=== PATIENT | male | born 1945 | race Caucasian/White ===

== ENCOUNTER 2021-02-05 09:57 | Outpatient (REF) | payer MEDICARE, SELFPAY | END 2021-02-05 09:58 | disposition home or self-care (01) | LOC: HO.BBR 09:57 | PROVIDERS: Visit Provider Internal Medicine | DX: Z13.89 Encounter for screening for other disorder (principal) ==

== ENCOUNTER 2021-03-03 09:11 | Outpatient (REF) | payer MEDICARE, SELFPAY | END 2021-03-03 09:12 | disposition home or self-care (01) | LOC: HO.BBR 09:11 | PROVIDERS: Visit Provider Internal Medicine | DX: Z13.89 Encounter for screening for other disorder (principal) ==

== ENCOUNTER 2021-07-03 10:08 | Outpatient (REF) | payer MEDICARE, SELFPAY | END 2021-07-03 10:09 | disposition home or self-care (01) | LOC: HO.BBR 10:08 | PROVIDERS: Visit Provider Internal Medicine | DX: Z13.89 Encounter for screening for other disorder (principal) ==

== ENCOUNTER 2021-11-03 11:06 | Outpatient (REF) | payer MEDICARE, SELFPAY | END 2021-11-03 11:07 | disposition home or self-care (01) | LOC: HO.BBR 11:06 | PROVIDERS: Visit Provider Internal Medicine | DX: Z13.89 Encounter for screening for other disorder (principal) ==

== ENCOUNTER 2022-03-10 10:02 | Outpatient (REF) | payer MEDICARE, SELFPAY | END 2022-03-10 10:03 | disposition home or self-care (01) | LOC: HO.BBR 10:02 | PROVIDERS: Visit Provider Internal Medicine | DX: Z13.89 Encounter for screening for other disorder (principal) ==

== ENCOUNTER 2023-05-03 07:51 | Outpatient (REF) | payer MEDICARE, SELFPAY | END 2023-05-03 07:52 | disposition home or self-care (01) | LOC: HO.HOSX 07:51 | PROVIDERS: Visit Provider Orthopaedic Surgery | DX: M25.511 Pain in right shoulder (principal) | CPT/HCPCS: 99202 ==

== ENCOUNTER 2023-05-03 12:28 | Outpatient (AMB) | payer MEDICARE, SELFPAY ==
--- NOTE | 2023-05-03 12:45 | A.OFFVIS_ITS ---
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 He states that he injured his shoulder while working out approximately 1 year ago. Since that time he has had difficulty lifting his right hand above shoulder height. He has had injections in the past which gave him minimal relief. He has also done physical therapy for 12 weeks over the last 6 months which aggravated his pain. He has tried Tylenol and anti-inflammatory medicines which gave him minimal relief. Allergies No Known Allergies Allergy (Verified 05/03/23 12:47) Medication List - Last Reconciled 05/03/23 by Anthony Mcallister MD aspirin (Adult Aspirin Regimen) 81 mg PO DAILY atorvastatin 80 mg PO DAILY metoprolol succinate ER 25 mg PO DAILY tamsulosin 0.4 mg PO DAILY PFSH Surgical History (Updated 05/03/23 @ 12:49 by Scarlett Fuentes CMA) Hx of hernia repair Hx of appendectomy H/O heart surgery Social History (Updated 05/03/23 @ 12:49 by Scarlett Fuentes CMA) Patient Tobacco Use Status: Never used Tobacco Current occupational status: retired Physical Exam Vital Signs: BMI result Body Mass Index 24.5 Const Other: Well-nourished well-developed very friendly male awake alert and oriented x3 in no acute distress Extrem Other: Bilateral upper extremity examination shows good capillary refill, no skin lesions noted, normal sensation light touch Right shoulder examination shows decreased range of motion when compared to his left shoulder, 4/5 strength with supraspinatus testing, positive impingement signs, tenderness over his acromioclavicular joint, no instability Results Reviewed Results Reviewed: X-rays of the patient's right shoulder show severe acromioclavicular joint narrowing, a type 2 acromion, no acute bony abnormalities Assessment & Plan Assessment & Plan (1) Right shoulder pain: Code(s): M25.511 - Pain in right shoulder Plan Mr. Reyes presents with progressively worsening right shoulder pain and weakness most likely due to a full-thickness rotator cuff tear. Thus, I will send the patient for an MRI of his right shoulder for further evaluation of his rotator cuff tendons. If he does have a full-thickness tear I will recommend surgical repair to optimize his future functional level. He will continue with his range of motion exercises in the meantime to prevent stiffness. Feel free to call me at any time should questions regarding his orthopedic management arise. Thank you very much for asking me to see this very friendly gentleman. I spent 22 minutes in reviewing the patient's records and imaging studies, seeing the patient and documenting in the medical record. Orders: Orders MR shoulder RT wo con Today M25.511 - Pain in right shoulder XR shoulder RT min 2V Today M25.511 - Pain in right shoulder Coding Level of Care Code New Pt Level 2 (47772) Diagnoses Right shoulder pain M25.511
[2023-05-03 12:46] VITALS: BMI 24.5
== END 2023-05-03 13:05 | disposition home or self-care (01) ==
PROVIDERS: Visit Provider Orthopaedic Surgery
DX: M25.511 Pain in right shoulder (principal)
CPT/HCPCS: 99202

== ENCOUNTER 2023-05-17 10:53 | Outpatient (AMB) | payer MEDICARE, SELFPAY ==
--- NOTE | 2023-05-17 10:59 | MHC.OFFVIS ---
Intake Vital Signs 05/17/23 11:02 Height 5 ft 8 in Weight 161 lb BMI 24.5 Intake Visit Reasons: OV- MRI review Rt shoulder Intake Note: Royal is a 77 year old right hand dominant male who presents today with complaints of right shoulder pain and weakness. He states that he injured his shoulder while working out approximately 1 year ago. Since that time he has had difficulty lifting his right hand above shoulder height. He has had injections in the past which gave him minimal relief. He has also done physical therapy for 12 weeks over the last 6 months which aggravated his pain. He has tried Tylenol and anti-inflammatory medicines which gave him minimal relief. Allergies No Known Allergies Allergy (Verified 05/17/23 11:02) Medication List - Last Reconciled 05/17/23 by Anthony Mcallister MD aspirin (Adult Aspirin Regimen) 81 mg PO DAILY atorvastatin 80 mg PO DAILY metoprolol succinate ER 25 mg PO DAILY tamsulosin 0.4 mg PO DAILY PFSH Surgical History Hx of hernia repair Hx of appendectomy H/O heart surgery Patient Tobacco Use Status: Never used Tobacco Current occupational status: retired Physical Exam Vital Signs: BMI result Body Mass Index 24.5 Const Other: Well-nourished well-developed very friendly male awake alert and oriented x3 in no acute distress Lungs - clear to auscultation bilaterally with symmetric expansion Cardiovascular exam - regular rate and rhythm Abdominal exam - soft nontender nondistended Extrem Other: Bilateral upper extremity examination shows good capillary refill, no skin lesions noted, normal sensation light touch Right shoulder examination shows decreased range of motion when compared to his left shoulder, 4/5 strength with supraspinatus testing, positive impingement signs, tenderness over his acromioclavicular joint, no instability Results Reviewed Results Reviewed: MRI of the patient's right shoulder show severe acromioclavicular joint narrowing, a type 2 acromion, a full-thickness supraspinatus tendon tear Assessment & Plan Assessment & Plan (1) Right shoulder pain: Code(s): M25.511 - Pain in right shoulder Plan Mr. Reyes presents with progressively worsening right shoulder pain and weakness due to impingement syndrome, acromioclavicular joint arthritis and a full-thickness rotator cuff tear. I had a lengthy discussion with the patient regarding the treatment options. At this point he has failed continued non operative treatments. The risks and benefits of right shoulder surgery were discussed at length with the patient. The patient wishes to proceed with surgery. Surgery will most likely involve right shoulder diagnostic arthroscopy with distal clavicle excision, acromioplasty and rotator cuff repair. The patient will contact my office to pick a surgery date. He will follow-up as instructed. Feel free to call me at any time should questions regarding his orthopedic management arise. I spent 22 minutes in reviewing the patient's records and imaging studies, seeing the patient and documenting in the medical record. Coding Level of Care Code Est Pt Level 2 (67832) Diagnoses Right shoulder pain M25.511
[2023-05-17 11:02] VITALS: BMI 24.5
== END 2023-05-17 11:24 | disposition home or self-care (01) ==
PROVIDERS: PCP Internal Medicine; Visit Provider Orthopaedic Surgery
DX: M25.511 Pain in right shoulder (principal)
CPT/HCPCS: 99212

== ENCOUNTER → 2023-05-17 10:53 | Outpatient (BNVA) | payer MEDICARE, SELFPAY | PROVIDERS: PCP Internal Medicine; Visit Provider Orthopaedic Surgery | DX: M25.511 Pain in right shoulder (principal) | CPT/HCPCS: 99212 ==

== ENCOUNTER → 2023-05-30 | Outpatient (BNV) | payer MEDICARE, SELFPAY | PROVIDERS: PCP Internal Medicine; Visit Provider Internal Medicine Cardiovascular Disease | DX: R00.1 Bradycardia, unspecified (principal); R94.31 Abnormal electrocardiogram [ECG] [EKG] | CPT/HCPCS: 93010 ==

== ENCOUNTER 2023-06-17 05:53 | Day surgery (SDC) | payer MEDICARE, SELFPAY ==
--- NOTE | 2023-05-30 | ECG_ITS ---
Test Reason : PREOP Blood Pressure : / mmHG Vent. Rate : 052 BPM Atrial Rate : 052 BPM P-R Int : 156 ms QRS Dur : 122 ms QT Int : 468 ms P-R-T Axes : 071 024 095 degrees QTc Int : 435 ms Sinus bradycardia Right bundle branch block Inferior infarct , age undetermined Abnormal ECG No previous ECGs available Referred By: Matilda Howell Electronically Signed By:Larry Cohn
[2023-05-30 11:53] VITALS: BP 125/62; PULSE 60; RESP 16; O2SAT 99; BMI 24.6
--- NOTE | 2023-05-30 12:10 | P.CONAN_ITS ---
Documented by User: Matilda Howell NP 06/16/23 09:45 HPI - Anesthesia Eval Consult details Narrative: 77yo M for Right shoulder arthoroscopy, distal clavicle excision, rotator cuff repair, 06/17/23 No IV/BP on Left ARM (Vein harvesting for CABG) Follows [facility]. s/p CABG x 5 2020 Hx afib s/p maze, No OAC. Hx CVA 04/2020 No CP/SOB with 45 min cardio and strength training 3 x weekly Hernia surgery repair and elvie with GA 2022 without issue Hemochromatosis - no therapeutic phlebs for ~ 1 year. Last H&H mild low 02/2023 CVA 2019 - No residual PMFSH Active Problems Active Problems: All Active Problems (Updated 05/27/23 @ 12:01 by Pratima Munguia RN) Right shoulder pain (Acute) Past Medical History Medical History History of hemochromatosis Hx TIA/stroke w/o resid RBBB (right bundle branch block) History of transesophageal echocardiography (ASIYA) Exercises three times per week History of atrial fibrillation BPH (benign prostatic hyperplasia) Elevated cholesterol HTN (hypertension) Surgical History Surgical History Hx of maze procedure Hx of colonoscopy Hx laparoscopic cholecystectomy History of bilateral inguinal hernia repair Hx of appendectomy H/O heart surgery Social History Social History (Updated 05/27/23 @ 09:55 by Pratima Munguia RN) Are you a primary disabilities caregiver to a significant other at home: No Do you presently have visiting nurse or other home services: No Patient Tobacco Use Status: Former Tobacco user Quit Date: Tobacco use type: Cigarette Use of substances other than those prescribed or required for medical reasons: No Have you been hit, kicked, punched, or otherwise hurt by someone within the past year? If so, by whom?: No Are you DNR?: No Advance Directives: No Advance Directives Information Provided: Yes Advance Directives on File: No Recently lost weight without trying: No Nutrition Risks: No Nutritional Risk Current occupational status: retired Meds Allergies Allergy/AdvReac Type Severity Reaction Status Date / Time No Known Allergies Allergy Verified 06/17/23 06:32 Home Medications Medication Instructions Recorded Confirmed Last Taken Type aspirin 81 mg tablet,delayed 81 mg PO DAILY 05/03/23 06/17/23 06/16/23 History release (Adult Aspirin Regimen) atorvastatin 80 mg tablet 80 mg PO DAILY 05/03/23 06/17/23 06/16/23 History metoprolol succinate 25 mg 25 mg PO DAILY 05/03/23 06/17/23 06/17/23 05:00 History tablet,extended release 24 hr tamsulosin 0.4 mg capsule 0.8 mg PO DAILY 05/03/23 06/17/23 06/16/23 History acetaminophen 500 mg tablet 1,000 mg PO Q6H PRN Pain 05/30/23 06/17/23 06/17/23 05:00 History Exam Height,Weight and Vital Signs: Height 5 ft 8 in Weight 73.482 kg Last Vital Signs Pulse 60 05/30/23 11:53 Resp 16 05/30/23 11:53 BP 125/62 05/30/23 11:53 Pulse Ox 99 05/30/23 11:53 O2 Del Method Room Air 05/30/23 11:53 Pertinent Lab Results Pertinent Lab Results: CBC and BMP 02/2023 from outside facility WNL except mild low H&H Narrative Narrative: EKG 05/2023 Vent. Rate : 052 BPM Atrial Rate : 052 BPM P-R Int : 156 ms QRS Dur : 122 ms QT Int : 468 ms P-R-T Axes : 071 024 095 degrees QTc Int : 435 ms Sinus bradycardia Right bundle branch block Inferior infarct , age undetermined Abnormal ECG No previous ECGs available (No change from EKG from outside facility 08/2022) Airway Mallampati Class: I TM Dist: >3cm Neck ROM: Limited (d/t shoulder pain) Partial: Lower Loose/Missing/Broken Teeth: Yes (Crowned front upper) Heart: RRR Lungs: CTAB Assessment and Plan Assessment Anesthesia Assessment: Anesthesia Plan Discussed and PAT Visit Documented by User: Willis Kuo MD 06/17/23 07:38 [facility] Past Medical History Medical History History of hemochromatosis Hx TIA/stroke w/o resid RBBB (right bundle branch block) History of transesophageal echocardiography (ASIYA) Exercises three times per week History of atrial fibrillation BPH (benign prostatic hyperplasia) Elevated cholesterol HTN (hypertension) Family History Family history of problems with anesthesia: No Surgical History Surgical History Hx of maze procedure Hx of colonoscopy Hx laparoscopic cholecystectomy History of bilateral inguinal hernia repair Hx of appendectomy H/O heart surgery History of Problems with Anesthesia: No Social History Social History (Updated 05/27/23 @ 09:55 by Pratima Munguia RN) Are you a primary disabilities caregiver to a significant other at home: No Do you presently have visiting nurse or other home services: No Patient Tobacco Use Status: Former Tobacco user Quit Date: Tobacco use type: Cigarette Use of substances other than those prescribed or required for medical reasons: No Have you been hit, kicked, punched, or otherwise hurt by someone within the past year? If so, by whom?: No Are you DNR?: No Advance Directives: No Advance Directives Information Provided: Yes Advance Directives on File: No Recently lost weight without trying: No Nutrition Risks: No Nutritional Risk Current occupational status: retired Meds Allergies Allergy/AdvReac Type Severity Reaction Status Date / Time No Known Allergies Allergy Verified 06/17/23 06:32 Home Medications Medication Instructions Recorded Confirmed Last Taken Type aspirin 81 mg tablet,delayed 81 mg PO DAILY 05/03/23 06/17/23 06/16/23 History release (Adult Aspirin Regimen) atorvastatin 80 mg tablet 80 mg PO DAILY 05/03/23 06/17/23 06/16/23 History metoprolol succinate 25 mg 25 mg PO DAILY 05/03/23 06/17/23 06/17/23 05:00 History tablet,extended release 24 hr tamsulosin 0.4 mg capsule 0.8 mg PO DAILY 05/03/23 06/17/23 06/16/23 History acetaminophen 500 mg tablet 1,000 mg PO Q6H PRN Pain 05/30/23 06/17/23 06/17/23 05:00 History Assessment and Plan Final Anesthetic Review Family History of Problems with Anesthesia: No History of Problems with Anesthesia: No NPO: Yes ASA Class: III Final Preanesthetic Review: No Changes in Pt Med Stat, Meds/Allgs Chart Reviewed, Consent Obtained/Reviewed and Anes Risks/Benef Reviewed Patient Risk: Intermediate Procedure Risk: Intermediate Anesthetic Plan Anesthetic Plan: GA and Regional Block Disposition: Standard PACU
[2023-06-17] VITALS (8 sets, daily range): BP systolic 131–157; BP diastolic 44–61; PULSE 54–64; RESP 14–16; TEMP 36.1–36.2; O2SAT 94–99; BMI 25.3
[2023-06-17] MEDS: Lactated Ringers 1,000 ML 100 ML IVCONT (06:40)
--- NOTE | 2023-06-17 09:52 | PM.OP ---
Brief Operative Note Date of Service: 06/17/23 Pre-op diagnosis: Right shoulder impingement syndrome, right shoulder acromioclavicular joint arthritis, right shoulder rotator cuff tear Post-op diagnosis: other (Same as preoperative diagnoses as well as right shoulder adhesive capsulitis and right shoulder glenohumeral joint arthritis) Procedure: Right shoulder diagnostic arthroscopy with right shoulder arthroscopic distal clavicle excision, right shoulder arthroscopic acromioplasty, right shoulder arthroscopic anterior capsular release, right shoulder manipulation under anesthesia, right shoulder mini-open rotator cuff repair Implants: 1 suture anchor (Alba [employer] Nephew Twinfix anchor the #2 Ultrabraid suture) Surgeon: Anthony Mcallister MD Anesthesia: GETA and regional Was an Kieselguhr Regenerator Operator used for this Procedure?: No Estimated blood loss (mL): 15 Pathology: none sent Condition: stable Disposition: PACU
--- NOTE | 2023-06-17 09:54 | P.OP_ITS ---
Operative Note Operative Note Date of Service: 06/17/23 Narrative: After the patient was identified as Royal Reyes and his right shoulder was initialed by myself the patient was brought to the holding area where a right shoulder interscalene regional block was performed by the anesthesiologist in routine fashion. The patient was then brought to the operating room where general anesthesia was induced by the anesthesiologist in routine fashion. The patient was given 2 g of IV Ancef preoperatively for infection prophylaxis. Examination under anesthesia of the patient's right shoulder show decreased passive range of motion when compared to the left. The patient's right shoulder had forward flexion to 120 degrees compared to 170 degrees, external rotation at 30 degrees compared to 60 degrees, internal rotation to 40 degrees compared to 50 degrees. The patient was gently positioned in the beach chair position with all bony prominences well padded. The patient's right shoulder region and upper extremity were prepped and draped in sterile fashion. A formal time-out was completed. A #11 scalpel blade was used to make a posterior portal 2 cm inferior and 1 cm medial to the posterolateral corner of the acromion. Blunt trocar technique was used to enter the glenohumeral joint in routine fashion. An anterior portal was made just lateral to the coracoid process after proper positioning was confirmed using a spinal needle. Diagnostic arthroscopy showed diffuse grade 1 and 2 degenerative changes of the glenoid articular surface as well as grade 2 and 3 degenerative changes of the humeral head. The articular surfaces of both were already smooth so no chondroplasty was indicated. There was a full-thickness tear of the supraspinatus tendon. There was no evidence of injury to the biceps tendon or its insertion onto the glenoid. There was inflammation of the anterior joint capsule consistent with adhesive capsulitis. Thus, the ArthroCare Wand was used to perform an anterior capsular release between the superior border of the subscapularis tendon and the inferior border of the biceps tendon. All arthroscopic instruments were removed. A gentle manipulation under anesthesia was then performed. Full passive range of motion was easily obtained. The arthroscope was then placed from the posterior portal into the subacromial space. A lateral portal was made 2 fingerbreadths lateral to the anterior lateral corner of the acromion. The ArthroCare Wand was used to ablate soft tissues along the undersurface of the acromion as well as to excise the coracoacromial ligament. There was a sharp spur along the undersurface of the acromion which was removed using the hooded bur. The arthroscope was then placed into the lateral portal and the acromioplasty was completed with the bur in the posterior portal using the posterior aspect of the acromion as a cutting block. The ArthroCare Wand was then brought in through the anterior portal and was used to ablate soft tissues along the acromioclavicular joint and distal clavicle. The posterior and superior ligamentous structures were left intact. A distal clavicle excision of 8 mm was performed using the hooded bur. Any remaining bursal tissue was removed using the arthroscopic shaver. The suba cromial space was irrigated and then drained. All arthroscopic instruments were removed. Sterile gloves were changed and the shoulder was once again prepped with Betadine. A #15 scalpel blade was used to extend the lateral portal to the lateral edge of the acromion. The subacromial tissues were dissected using electrocautery down to the superficial deltoid fascia. The trocar split in the anterior raphe of the deltoid was then extended to the lateral edge of the acromion using electrocautery and curved Bazan scissors. Any remaining bursal tissue was removed using curved Bazan scissors. Subacromial and subdeltoid adhesions were bluntly dissected. The undersurface of the acromion was palpated and it was smooth. A #2 Ethibond tag suture was placed into the supraspinatus tendon. The tendon was easily mobilized to its insertion point on the glenoid. The wound was irrigated with copious amounts of normal saline solution. One suture anchor was placed into the greater tuberosity in routine fashion. The rotator cuff repair was then performed using horizontal mattress sutures under minimal tension with the patient's elbow at their side. Following the repair the shoulder was taken through a full range of motion. The repair was stable. The wound was irrigated with copious amounts of normal saline solution. The superficial and deep deltoid fascia were closed with #1 Vicryl [id number]-[id number] interrupted suture. The wound was once again irrigated. The subcutaneous tissues were closed with 2-0 Vicryl interrupted suture. The skin was closed with 3-0 Prolene subcuticular suture and Steri-Strips. The anterior and posterior portals were closed with 3-0 nylon interrupted suture. Dry sterile dressing was placed over all incisions. The patient's right upper extremity was placed into a sling. The patient was awoken and extubated in the operating room. The patient was transferred to the recovery room in stable condition.
[2023-06-17] MEDS: cefTRIAXone sodium 1 GM in 0.9 % Sodium Chloride 50 ML IV (10:25)
== END 2023-06-17 11:43 | disposition home or self-care (01) ==
PROVIDERS: PCP Internal Medicine; Visit Provider Orthopaedic Surgery
PROC: (CPT 29805; principal; 2023-06-17 07:30)
DX: M75.101 Unspecified rotator cuff tear or rupture of right shoulder, not specified as traumatic (principal); M75.41 Impingement syndrome of right shoulder; M19.011 Primary osteoarthritis, right shoulder; M75.01 Adhesive capsulitis of right shoulder; I45.10 Unspecified right bundle-branch block; I10 Essential (primary) hypertension; E78.00 Pure hypercholesterolemia, unspecified; Z79.82 Long term (current) use of aspirin; Z79.899 Other long term (current) drug therapy; Z86.73 Personal history of transient ischemic attack (TIA), and cerebral infarction without residual deficits; Z98.890 Other specified postprocedural states; Z87.891 Personal history of nicotine dependence
CPT/HCPCS: 29824; 29825; 23412; 29826; 93005; C1713; J0171; J0690; J0696; J1100; J2405; J2704; J2795

== ENCOUNTER → 2023-06-17 05:53 | Outpatient (BNV) | payer MEDICARE, SELFPAY | PROVIDERS: PCP Internal Medicine; Visit Provider Orthopaedic Surgery | DX: S46.011A Strain of muscle(s) and tendon(s) of the rotator cuff of right shoulder, initial encounter (principal); M75.41 Impingement syndrome of right shoulder; M19.011 Primary osteoarthritis, right shoulder | CPT/HCPCS: 23410; 29824; 29826 ==

== ENCOUNTER 2023-06-30 11:29 | Outpatient (AMB) | payer MEDICARE, SELFPAY ==
--- NOTE | 2023-06-30 11:37 | A.OFFVIS_ITS ---
Intake Intake Visit Reasons: Rt Shld RTC Repair 06/17/23 Intake Note: Royal a 77 year old male presents today for a post operative right shoulder RTC repair, DOS 06/17/23 Patient reports he is doing well, states his pain has been tolerable. Allergies No Known Allergies Allergy (Verified 06/30/23 11:37) HPI Rt Shld RTC Repair 06/17/23 HPI Details 77-year-old male who returns to the [facility] today for post-op right shoulder RTC repair, 06/17/[address] Mcallister. He continues to have pain in his right shoulder which has been tolerable. He is doing well overall and has no other concerns today. [facility] Medical History History of hemochromatosis Hx TIA/stroke w/o resid RBBB (right bundle branch block) History of transesophageal echocardiography (ASIYA) Exercises three times per week History of atrial fibrillation BPH (benign prostatic hyperplasia) Elevated cholesterol HTN (hypertension) Surgical History Hx of maze procedure Hx of colonoscopy Hx laparoscopic cholecystectomy History of bilateral inguinal hernia repair Hx of appendectomy H/O heart surgery Social History Are you a primary health care marketing manager to a significant other at home: No Do you presently have visiting nurse or other home services: No Patient Tobacco Use Status: Former Tobacco user Quit Date: Tobacco use type: Cigarette Current occupational status: retired Review of Systems Const All systems reviewed & are unremarkable except as noted in HPI and below Physical Exam Extrem Other: Right shoulder: Normal to inspection. Incision clean, dry and intact. No erythema or drainage. NVI. Results Reviewed Results Reviewed: Date of Service: 06/17/23 Pre-op diagnosis: Right shoulder impingement syndrome, right shoulder acromioclavicular joint arthritis, right shoulder rotator cuff tear Post-op diagnosis: other (Same as preoperative diagnoses as well as right shoulder adhesive capsulitis and right shoulder glenohumeral joint arthritis) Procedure: Right shoulder diagnostic arthroscopy with right shoulder arthroscopic distal clavicle excision, right shoulder arthroscopic acromioplasty, right shoulder arthroscopic anterior capsular release, right shoulder manipulation under anesthesia, right shoulder mini-open rotator cuff repair Implants: 1 suture anchor (Alba [employer] Nephew Twinfix anchor the #2 Ultrabraid suture) Surgeon: Anthony Mcallister MD Assessment & Plan Assessment & Plan (1) S/P right rotator cuff repair: Code(s): Z98.890 - Other specified postprocedural states Plan Sutures removed today, steri strips applied. I did give him a handout of home exercises program and discussed this with them. I stressed the importance of wearing the sling and avoid any type of lifting or driving. I also placed an order for formal physical therapy in the office today. I would like to see him back in [address] Mcallister, sooner if needed. Orders: Orders PT Evaluation and Treatment Today Z98.890 - Other specified postprocedural states Patient Instructions: Scribed for Eric Perez PA-C, by Dakota Bertrand medical malpractice paralegal, on 06/30/2023 at 11:30 AM EST. I, Eric Perez PA-C, have personally reviewed and agree with the information entered by the scribe. Coding Level of Care Code Global (97805) Diagnoses S/P right rotator cuff repair Z98.890
== END 2023-06-30 12:15 | disposition home or self-care (01) ==
PROVIDERS: PCP Internal Medicine; Visit Provider Physician Assistant
DX: Z98.890 Other specified postprocedural states (principal)
CPT/HCPCS: 99024

== ENCOUNTER → 2023-06-30 11:29 | Outpatient (BNVA) | payer MEDICARE, SELFPAY | PROVIDERS: PCP Internal Medicine; Visit Provider Physician Assistant | DX: Z47.89 Encounter for other orthopedic aftercare (principal); Z98.890 Other specified postprocedural states | CPT/HCPCS: 99212 ==

== ENCOUNTER 2023-07-28 12:50 | Outpatient (AMB) | payer MEDICARE, SELFPAY ==
--- NOTE | 2023-07-28 12:51 | MHC.OFFVIS ---
Intake Vital Signs 07/28/23 12:54 Height 5 ft 8 in Weight 162 lb BMI 24.6 Intake Visit Reasons: PO - Rt Shld RTC Repair 06/17/23 Intake Note: Royal is a 77 year old male who presents for a post operative appointment s/p Right should RTC repair 06/17/2023 The patient reports mild intermittent discomfort in his right shoulder. He denies any fevers or chills. He continues to go to formal physical therapy. Takes Tylenol as needed for his discomfort. Allergies No Known Allergies Allergy (Verified 07/28/23 12:56) Medication List - Last Reconciled 07/28/23 by Anthony Mcallister MD acetaminophen 1,000 mg PO Q6H PRN aspirin (Adult Aspirin Regimen) 81 mg PO DAILY atorvastatin 80 mg PO DAILY metoprolol succinate ER 25 mg PO DAILY oxycodone 10 mg (2 x 5 mg) PO Q4H PRN tamsulosin 0.8 mg PO DAILY PFSH Medical History History of hemochromatosis Hx TIA/stroke w/o resid RBBB (right bundle branch block) History of transesophageal echocardiography (ASIYA) Exercises three times per week History of atrial fibrillation BPH (benign prostatic hyperplasia) Elevated cholesterol HTN (hypertension) Surgical History Hx of shoulder surgery (06/17/23) Hx of maze procedure Hx of colonoscopy Hx laparoscopic cholecystectomy History of bilateral inguinal hernia repair Hx of appendectomy H/O heart surgery Social History Are you a primary personal care aid to a significant other at home: No Do you presently have visiting nurse or other home services: No Patient Tobacco Use Status: Former Tobacco user Quit Date: Tobacco use type: Cigarette Current occupational status: retired Physical Exam Vital Signs: BMI result Body Mass Index 24.6 Extrem Other: Right shoulder examination shows that the surgical incisions are well healed, no erythema, slightly decreased range of motion when compared to his left shoulder, minimal discomfort with resisted internal and external rotation Assessment & Plan Assessment & Plan (1) S/P right rotator cuff repair: Code(s): Z98.890 - Other specified postprocedural states Plan Mr. Reyes continues to do very well after undergoing right shoulder rotator cuff repair surgery on 06/17/2023. He will continue going to formal physical therapy for now. He can begin active range of motion exercises once he is 8 weeks out from his surgery. The do's and don'ts of lifting were discussed at length with the patient. He will contact me prior to his follow-up appointment in 2 months should any questions or concerns arise. Feel free to call me at any time should questions regarding his orthopedic management arise. Orders: Orders PT Evaluation and Treatment Today Z98.890 - Other specified postprocedural states Coding Level of Care Code Global (94516) Diagnoses S/P right rotator cuff repair Z98.890
[2023-07-28 12:54] VITALS: BMI 24.6
== END 2023-07-28 13:17 | disposition home or self-care (01) ==
PROVIDERS: PCP Internal Medicine; Visit Provider Orthopaedic Surgery
DX: Z98.890 Other specified postprocedural states (principal)
CPT/HCPCS: 99024

== ENCOUNTER → 2023-07-28 12:50 | Outpatient (BNVA) | payer MEDICARE, SELFPAY | PROVIDERS: PCP Internal Medicine; Visit Provider Orthopaedic Surgery | DX: Z47.89 Encounter for other orthopedic aftercare (principal); Z98.890 Other specified postprocedural states | CPT/HCPCS: 99212 ==

== ENCOUNTER 2023-09-28 14:17 | Outpatient (AMB) | payer MEDICARE, SELFPAY ==
[2023-09-28 14:24] VITALS: BMI 24.6
--- NOTE | 2023-09-28 14:24 | MHC.OFFVIS ---
Intake Vital Signs 09/28/23 14:24 Height 5 ft 8 in Weight 162 lb BMI 24.6 Intake Visit Reasons: OV-Rt Shld RTC Repair 06/17/23 Intake Note: Royal is a 78 year old Right hand dominate female who presents for a follow up after his Right shoulder RTC repair on 06/17/2023. Patient reports he is doing well. He continues to go to physical therapy at [facility]. He does not take any medicines for his discomfort. He would like to start riding his motorcycle again. Allergies No Known Allergies Allergy (Verified 09/28/23 14:28) Medication List - Last Reconciled 09/28/23 by Anthony Mcallister MD acetaminophen 1,000 mg PO Q6H PRN aspirin (Adult Aspirin Regimen) 81 mg PO DAILY atorvastatin 80 mg PO DAILY metoprolol succinate ER 25 mg PO DAILY oxycodone 10 mg (2 x 5 mg) PO Q4H PRN tamsulosin 0.8 mg PO DAILY PFSH Medical History History of hemochromatosis Hx TIA/stroke w/o resid RBBB (right bundle branch block) History of transesophageal echocardiography (ASIYA) Exercises three times per week History of atrial fibrillation BPH (benign prostatic hyperplasia) Elevated cholesterol HTN (hypertension) Surgical History Hx of shoulder surgery (06/17/23) Hx of maze procedure Hx of colonoscopy Hx laparoscopic cholecystectomy History of bilateral inguinal hernia repair Hx of appendectomy H/O heart surgery Social History Are you a primary critical care nurse to a significant other at home: No Do you presently have visiting nurse or other home services: No Patient Tobacco Use Status: Former Tobacco user Quit Date: Tobacco use type: Cigarette Current occupational status: retired Physical Exam Vital Signs: BMI result Body Mass Index 24.6 Const Other: Well-nourished well-developed very friendly male awake alert and oriented x3 in no acute distress Extrem Other: Bilateral upper extremity examination shows good capillary refill, no skin lesions noted, normal sensation light touch Right shoulder examination shows that the surgical incisions are well healed, no erythema, full range of motion when compared to his left shoulder, 5/5 strength with supraspinatus testing, no instability Assessment & Plan Assessment & Plan (1) Right shoulder pain: Code(s): M25.511 - Pain in right shoulder Plan Mr. Reyes continues to do very well after undergoing right shoulder rotator cuff repair surgery on 06/17/2023. Will continue going to formal physical therapy for now. He will gradually transition to a home exercise program. The do's and don'ts of lifting were discussed at length with the patient. He will contact me prior to his follow-up appointment in 2 months should any questions or concerns arise. Feel free to call me at any time should questions regarding his orthopedic management arise. I spent 22 minutes in reviewing the patient's records and imaging studies, seeing the patient and documenting in the medical record. Coding Level of Care Code Est Pt Level 2 (68542) Diagnoses Right shoulder pain M25.511
== END 2023-09-28 14:47 | disposition home or self-care (01) ==
PROVIDERS: PCP Internal Medicine; Visit Provider Orthopaedic Surgery
DX: M25.511 Pain in right shoulder (principal)
CPT/HCPCS: 99213

== ENCOUNTER → 2023-09-28 14:17 | Outpatient (BNVA) | payer MEDICARE, SELFPAY | PROVIDERS: PCP Internal Medicine; Visit Provider Orthopaedic Surgery | DX: M25.511 Pain in right shoulder (principal) | CPT/HCPCS: 99212 ==

== ENCOUNTER 2023-11-29 12:46 | Outpatient (AMB) | payer MEDICARE, SELFPAY ==
--- NOTE | 2023-11-29 12:51 | A.OFFVIS_ITS ---
Vital Signs 11/29/23 12:52 Height 5 ft 8 in Weight 160 lb BMI 24.3 Intake Visit Reasons: OV-Rt Shld RTC Repair 06/17/23 Intake Note: Royal is a 78 year old right hand dominate male who presents today for a follow up visit s/p Right Shoulder RTC Repair 06/17/23. Patient reports he is doing well. He denies any weakness in his shoulder. He denies any fevers or chills. He has mild intermittent discomfort. He does not take any medicines for his discomfort. He continues to work out at the gym 3 days per week. Allergies No Known Allergies Allergy (Verified 11/29/23 12:53) Medication List - Last Reconciled 11/29/23 by Anthony Mcallister MD acetaminophen 1,000 mg PO Q6H PRN aspirin (Adult Aspirin Regimen) 81 mg PO DAILY atorvastatin 80 mg PO DAILY metoprolol succinate ER 25 mg PO DAILY tamsulosin 0.8 mg PO DAILY PFSH Medical History History of hemochromatosis Hx TIA/stroke w/o resid RBBB (right bundle branch block) History of transesophageal echocardiography (ASIYA) Exercises three times per week History of atrial fibrillation BPH (benign prostatic hyperplasia) Elevated cholesterol HTN (hypertension) Surgical History Hx of shoulder surgery (06/17/23) Hx of maze procedure Hx of colonoscopy Hx laparoscopic cholecystectomy History of bilateral inguinal hernia repair Hx of appendectomy H/O heart surgery Social History Are you a primary rn care manager to a significant other at home: No Do you presently have visiting nurse or other home services: No Patient Tobacco Use Status: Former Tobacco user Tobacco use type: Cigarette Current occupational status: retired Physical Exam Vital Signs: BMI result Body Mass Index 24.3 Const Other: Well-nourished well-developed very friendly male awake alert and oriented x3 in no acute distress Extrem Other: Bilateral upper extremity examination shows good capillary refill, no skin lesions noted, normal sensation light touch Right shoulder examination shows that the surgical incisions are well healed, no erythema, full range of motion when compared to his left shoulder, 5/5 strength with supraspinatus testing, no instability Assessment & Plan Assessment & Plan (1) Right shoulder pain: Code(s): M25.511 - Pain in right shoulder Category: Medical Plan Mr. Reyes continues to do very well after undergoing right shoulder rotator cuff repair surgery on 06/17/2023. He will continue with his exercise program. The do's and don'ts of lifting were discussed at length with the patient. He will follow up with me on an as-needed basis should his symptoms worsen in any way. Feel free to call me at any time should questions regarding his orthopedic management arise. I spent 22 minutes in reviewing the patient's records and imaging studies, seeing the patient and documenting in the medical record. Coding Level of Care Code Est Pt Level 3 (80956) Diagnoses Right shoulder pain M25.511
[2023-11-29 12:52] VITALS: BMI 24.3
== END 2023-11-29 13:02 | disposition home or self-care (01) ==
PROVIDERS: PCP Internal Medicine; Visit Provider Orthopaedic Surgery
DX: M25.511 Pain in right shoulder (principal)
CPT/HCPCS: 99213

== ENCOUNTER → 2023-11-29 12:46 | Outpatient (BNVA) | payer MEDICARE, SELFPAY | PROVIDERS: PCP Internal Medicine; Visit Provider Orthopaedic Surgery | DX: M25.511 Pain in right shoulder (principal) | CPT/HCPCS: 99212 ==